=== PATIENT | male | born 1960 | race Caucasian/White ===

== ENCOUNTER 2017-05-14 11:37 | Emergency (ER) | payer SELFPAY ==
--- NOTE | 2017-05-14 11:58 | EDPHY ---
H & P Time Seen by Provider: 05/14/17 11:46 HPI/ROS: CHIEF COMPLAINT: Right lower quadrant pain HISTORY OF PRESENT ILLNESS: 57-year-old male presents with right lower quadrant pain. Onset of right lower quadrant pain 1 week ago, intermittent since then. The pain waxes and wanes and does not radiate to the back or groin. Just prior to arrival, the pain became more severe, which prompted his visit today. No associated symptoms. Specifically, no hematuria, nausea, vomiting, diarrhea or fever. No prior similar symptoms. REVIEW OF SYSTEMS: Constitutional: No fever, no chills Eyes: No visual changes ENT: No sore throat Respiratory: No cough, no shortness of breath Cardiac: No chest pain Genitourinary: no dysuria Musculoskeletal: No leg pain or swelling Skin: No rash Neurological: No headache, no weakness Psychiatric: No depression Past Medical/Surgical History: Denies Social History: Occasional alcohol No PCP Smoking Status: Never smoked Physical Exam: General Appearance: Alert, pleasant Eyes: Pupils equal and round, no conjunctival pallor or injection ENT, Mouth: Mucous membranes moist Neck: Normal inspection Respiratory: Lungs are clear to auscultation Cardiovascular: Regular rate and rhythm Gastrointestinal: Abdomen is soft and nontender Back: No CVA tenderness Neurological: A&O, nonfocal, normal gait Skin: Warm and dry, no rash Extremities: Nontender, no pedal edema Psychiatric: Mood and affect normal Constitutional: Initial Vital Signs Temperature (C) 36.5 C 05/14/17 11:39 Heart Rate 66 05/14/17 11:39 Respiratory Rate 16 05/14/17 11:39 Blood Pressure 131/97 H 05/14/17 11:39 O2 Sat (%) 97 05/14/17 11:39 O2 Delivery Mode Room Air Allergies/Adverse Reactions: amoxicillin Allergy (Verified 05/14/17 11:38) Home Medications: Medication Instructions Recorded NK [No Known Home Meds] 05/14/17 Medical Decision Making - Diagnostics Imaging Results: Imaging Impressions Abdomen/Pelvis CT 05/14/17 11:55 Impression: 1. Mildly enlarged left inguinal ring, containing fat. 2. Negative for urinary stone. 3. Normal appendix. I telephoned results to Jaylene Goldstein at 1330 hours. Attention: This CT examination is specifically designed to evaluate patients who are clinically suspected of having acute obstructive uropathy. This examination does not use radiographic contrast, and as such, provides only a limited evaluation of the abdomen, pelvis, and retroperitoneum. If there is further clinical suspicion for pathological conditions other than obstructive uropathy, a complete CT evaluation of the abdomen and pelvis utilizing intravenous, oral, and rectal contrast should be considered. ED Course/Re-evaluation: This patient presents with intermittent right lower quadrant pain and a normal abdominal exam. Clinical presentation most consistent with renal colic, doubt appendicitis, given normal abdominal exam. CT scan of the abdomen pelvis ordered to rule out ureteral calculus. CT scan results per Dr. Young normal. Laboratory results and CT scan results discussed with the patient. Ibuprofen instructions given. Abdominal pain precautions given. Abdomen remains benign on discharge. Differential Diagnosis: Differential diagnosis includes though it is not limited to appendicitis, cholecystitis, diverticulitis, pyelonephritis, bowel perforation, small bowel obstruction. - Data Points Laboratory Results: Laboratory Results 05/14/17 11:58 05/14/17 11:58 05/14/17 05/14/17 05/14/17 11:58 11:58 11:58 WBC 5.39 10^3/uL 10^3/uL (3.80-9.50) RBC 4.59 10^6/uL 10^6/uL (4.40-6.38) Hgb 15.6 g/dL g/dL (13.7-17.5) POC Hgb 15.6 gm/dL gm/dL (13.7-17.5) Hct 43.4 % % (40.0-51.0) POC Hct 46 % % (40-51) MCV 94.6 fL fL (81.5-99.8) MCH 34.0 pg pg (27.9-34.1) MCHC 35.9 g/dL g/dL (32.4-36.7) RDW 12.3 % % (11.5-15.2) Plt Count 257 10^3/uL 10^3/uL (150-400) MPV 9.9 fL fL (8.7-11.7) Neut % (Auto) 59.8 % % (39.3-74.2) Lymph % (Auto) 25.0 % % (15.0-45.0) [place] % (Auto) 13.0 % % (4.5-13.0) Eos % (Auto) 1.1 % % (0.6-7.6) Baso % (Auto) 0.9 % % (0.3-1.7) Nucleat RBC Rel Count 0.0 % % (0.0-0.2) Absolute Neuts (auto) 3.22 10^3/uL 10^3/uL (1.70-6.50) Absolute Lymphs (auto) 1.35 10^3/uL 10^3/uL (1.00-3.00) Absolute Monos (auto) 0.70 10^3/uL 10^3/uL (0.30-0.80) Absolute Eos (auto) 0.06 10^3/uL 10^3/uL (0.03-0.40) Absolute Basos (auto) 0.05 10^3/uL 10^3/uL (0.02-0.10) Absolute Nucleated RBC 0.00 10^3/uL 10^3/uL (0-0.01) Immature Gran % 0.2 % % (0.0-1.1) Immature Gran # 0.01 10^3/uL 10^3/uL (0.00-0.10) POC Sodium 142 mEq/L mEq/L (134-144) Sodium 141 mEq/L mEq/L (134-144) POC Potassium 3.8 mEq/L mEq/L (3.3-5.0) Potassium 3.8 mEq/L mEq/L (3.5-5.2) POC Chloride 104 mEq/L mEq/L (97-110) Chloride 104 mEq/L mEq/L (97-110) Carbon Dioxide 24 mEq/l mEq/l (22-31) Anion Gap 13 mEq/L mEq/L (8-16) POC BUN 14 mg/dL mg/dL (7-23) BUN 13 mg/dL mg/dL (7-23) Creatinine 0.9 mg/dL mg/dL (0.7-1.3) POC Creatinine 0.9 mg/dL mg/dL (0.7-1.3) Estimated GFR > 60 Glucose 88 mg/dL mg/dL (70-100) POC Glucose 90 mg/dL mg/dL (70-100) Calcium 9.4 mg/dL mg/dL (8.5-10.4) Point of Care Test Results: 05/14/17 11:58 POC Sodium 142 POC Potassium 3.8 POC Chloride 104 POC BUN 14 POC Creatinine 0.9 POC Glucose 90 Departure - Departure Disposition: Home, Routine, Self-Care Clinical Impression: Abdominal pain Qualifiers: Abdominal location: right lower quadrant Qualified Code(s): R10.31 - Right lower quadrant pain Condition: Good Instructions: Acute Abdominal Pain (ED) Additional Instructions: Ibuprofen 600 mg 3 times daily while the pain persists. Sometimes we are unable to diagnose an obvious cause of abdominal pain in the Emergency Department. Based upon our evaluation today, we see no obvious explanation for your pain. Because more serious conditions can be difficult to diagnose early in the course of their presentation, we ask that you return to the Emergency Department in 8-12 hours for a recheck if you are still having pain. This is necessary to exclude the development of a more serious condition such as appendicitis or other intra-abdominal emergency. In the event your pain markedly increases before that time or you develop intractable vomiting or fever return to the Emergency Department immediately. Referrals: Evaristo Turcios MD [Medical Doctor] - 2-3 days, if not improved
[2017-05-14 12:11] LABS: PLATELET COUNT 257 10^3/uL (150-400)
[2017-05-14 12:15] VITALS: RESP 18; O2SAT 95
[2017-05-14] MEDS ORDERED: KETOROLAC 15 MG/1 ML SDV IVP ONE ×2 (13:46)
[2017-05-14 14:11] VITALS: BP 112/78; PULSE 65; TEMP 98.2
== END 2017-05-14 14:10 | disposition home or self-care (01) ==
DX: R10.31 Right lower quadrant pain (principal)
CPT/HCPCS: 82947-QW; 96374; J1885